=== PATIENT | female | born 1950 | race Caucasian/White ===

== ENCOUNTER 2017-08-26 13:00 | Emergency (ER) | payer MEDICARE, BC ==
[2017-08-26] MEDS ORDERED: Ibuprofen 400 MG Tab PO ONE (13:01)
--- NOTE | 2017-08-26 13:39 | EDM.PDOC ---
ED HPI GENERAL MEDICAL PROBLEM - General Chief Complaint: General Stated Complaint: RIGHT JAW SWELLING Time Seen by Provider: 08/26/17 13:20 Source of Information: Reports: Patient History Limitations: Reports: No Limitations - History of Present Illness INITIAL COMMENTS - FREE TEXT/NARRATIVE: 67 YO WF presents to ER complaining of right sided facial swelling and lower jaw /dental pain x 2 days. Pt reports she recently had 2 molars pulled on the upper right side of her jaw and had been recovering well until 2 days ago when she developed facial swelling and lower jaw pain. Pt denies any fever/chills, no difficulty swallowing, breathing or trismus. Duration: Day(s): Quality: Reports: Ache Severity: Moderate Improves with: Reports: None Worsens with: Reports: None Associated Symptoms: Reports: No Other Symptoms. Denies: Fever/Chills, Headaches, Nausea/Vomiting, Shortness of Breath Right Face Pain Score (Numeric/FACES): 8 - Related Data Allergies Allergy/AdvReac Type Severity Reaction Status Date / Time Sulfa (Sulfonamide Allergy Cannot Verified 08/26/17 13:24 Antibiotics) Remember Home Meds: Home Meds Hydrocodone/Acetaminophen [Hydrocodon-Acetaminophn 10-325] 1 each PO Q6H PRN # 10 tablet 08/26/17 [Rx] Ibuprofen [Motrin] 800 mg PO TID PRN #10 tablet 08/26/17 [Rx] Penicillin V Potassium [Veetids] 500 mg PO Q6H #40 tab 08/26/17 [Rx] Past Medical History - Past Surgical History Musculoskeletal Surgical History: Reports: Arthroscopic Knee, Other (See Below) Other Musculoskeletal Surgeries/Procedures:: Foot surgery Social & Family History - Tobacco Use Smoking Status *Q: Never Smoker - Caffeine Use Caffeine Use: Reports: Soda - Recreational Drug Use Recreational Drug Use: No ED ROS GENERAL - Review of Systems Review Of Systems: See Below Constitutional: Reports: No Symptoms HEENT: Reports: Dental Pain Respiratory: Reports: No Symptoms Cardiovascular: Reports: No Symptoms Endocrine: Reports: No Symptoms GI/Abdominal: Reports: No Symptoms : Reports: No Symptoms Musculoskeletal: Reports: No Symptoms Skin: Reports: No Symptoms Neurological: Reports: No Symptoms Psychiatric: Reports: No Symptoms Hematologic/Lymphatic: Reports: No Symptoms Immunologic: Reports: No Symptoms ED EXAM, GENERAL - Physical Exam Exam: See Below Exam Limited By: No Limitations General Appearance: Alert, WD/WN, No Apparent Distress Nose: Normal Inspection, Normal Mucosa, No Blood Throat/Mouth: Normal Inspection, Normal Lips, Normal Gums, Normal Oropharynx, Normal Voice, No Airway Compromise, Other (right lower jaw swelling without stridor, trismus or airway compromise). No: Normal Teeth, Dysphagia Head: Atraumatic, Normocephalic Neck: Normal Inspection, Supple, Non-Tender, Full Range of Motion Respiratory/Chest: No Respiratory Distress, Lungs Clear, Normal Breath Sounds, No Accessory Muscle Use, Chest Non-Tender Cardiovascular: Normal Peripheral Pulses, Regular Rate, Rhythm, No Edema, No Gallop, No JVD, No Murmur, No Rub GI/Abdominal: Normal Bowel Sounds, Soft, Non-Tender, No Organomegaly, No Distention, No Abnormal Bruit, No Mass Back Exam: Normal Inspection, Full Range of Motion, NT Extremities: Normal Inspection, Normal Range of Motion, Non-Tender, Normal Capillary Refill, No Pedal Edema Neurological: Alert, Oriented, CN II-XII Intact, Normal Cognition, Normal Gait, Normal Reflexes, No Motor/Sensory Deficits Psychiatric: Normal Affect, Normal Mood Skin Exam: Warm, Dry, Intact, Normal Color, No Rash Lymphatic: No Adenopathy Course - Vital Signs Last Recorded V/S: Last Vital Signs Temp 37.3 C 08/26/17 13:20 Pulse 83 08/26/17 13:20 Resp 16 08/26/17 13:20 BP 141/73 H 08/26/17 13:20 Pulse Ox 95 08/26/17 13:20 - Orders/Labs/Meds Meds: Medications Discontinued Medications Generic Name Dose Route Start Last Admin Trade Name Freq PRN Reason Stop Dose Admin Ketorolac Tromethamine 60 mg 08/26/17 13:53 Toradol IM 08/26/17 13:54 ONETIME ONE Penicillin G Procaine/Benzathine 1.2 millunits 08/26/17 13:53 Bicillin C-R 600/600 IM 08/26/17 13:54 ONETIME ONE Departure - Departure Time of Disposition: 14:03 Disposition: Home, Self-Care 01 Condition: Good Clinical Impression: Dental abscess - Discharge Information Prescriptions: Hydrocodone/Acetaminophen [Hydrocodon-Acetaminophn 10-325] 1 each PO Q6H PRN # 10 tablet PRN Reason: Pain Ibuprofen [Motrin] 800 mg PO TID PRN #10 tablet PRN Reason: Pain Penicillin V Potassium [Veetids] 500 mg PO Q6H #40 tab Instructions: Dental Abscess, [id number] Referrals: Saritha Servin PA-C [Primary Care Provider] - Forms: ED Department Discharge - Assessment/Plan Assessment:: 1. dental abscess of molar lower right side Plan: 1. pen vee K 500mg PO Q6 x 10 days 2. hydrocodone 10/325 #15 Q4-6 prn pain 3. motrin 800mg PO Q8 PRN [facility]. [facility] and [facility]
[2017-08-26] MEDS ORDERED: Ketorolac 60 MG/2 ML SDV IM ONE (13:53)
[2017-08-26] MEDS ORDERED: Penicillin G Benzathine/Procaine 600-600 1.2 Millunits/2 ML Syringe IM ONE (13:53)
[2017-08-26] MEDS ORDERED: PENICILLIN V POTASSIUM 125 MG/5 ML PO SCH (14:15)
[2017-08-26] MEDS ORDERED: Penicillin V Potassium 250 MG Tab PO SCH (14:15)
[2017-08-26] MEDS: Ibuprofen 600 MG Tab PO SCH ×2 (14:15→14:43)
[2017-08-26] MEDS: Penicillin V Potassium 250 MG Tab PO SCH ×2 (14:42→14:45)
[2017-08-26] MEDS: Acetaminophen/HYDROcodone 325-10 MG Tab PO PRN ×2 (14:42→14:45)
== END 2017-08-26 15:03 | disposition home or self-care (01) ==
LOC: KA.ED 13:00
DX: K04.7 Periapical abscess without sinus (principal); Z88.2 Allergy status to sulfonamides
CPT/HCPCS: 96372; 99282; 99283; A9270-GY; J0558; J1885

== ENCOUNTER 2018-03-20 11:38 | Emergency (ER) | payer MEDICARE, BC ==
--- NOTE | 2018-03-20 12:35 | EDM.PDOC ---
ED HPI GENERAL MEDICAL PROBLEM - General Chief Complaint: General Stated Complaint: FALL AT HOME Time Seen by Provider: 03/20/18 12:29 Source of Information: Reports: Patient History Limitations: Reports: No Limitations - History of Present Illness INITIAL COMMENTS - FREE TEXT/NARRATIVE: Patient is a 67-year-old female who presents to the emergency department this afternoon with a complaint of fall. Patient states that she was in her backyard tending to her clothes, and her feet got caught up in the weeds. She subsequently fell backwards and landed on her buttocks. The ground was dirt and grass. Patient was approximately 20 feet away from the house, and was able to scoot to the porch door. She was able to open the door and access her purse to call her neighbor. Neighbor decided to bring her to the emergency department. Patient denies dizziness, headache, vision changes, chest pain, shortness of breath, abdominal pain, nausea, vomiting, bowel changes, or any pain. Onset: Today Duration: Minutes: Location: Reports: Other (No pain) Quality: Reports: Other (None) Improves with: Reports: None Worsens with: Reports: None Context: Reports: Other (Fall) Associated Symptoms: Reports: No Other Symptoms. Denies: Chest Pain, Fever/ Chills, Headaches, Nausea/Vomiting, Shortness of Breath - Related Data Allergies Allergy/AdvReac Type Severity Reaction Status Date / Time Sulfa (Sulfonamide Allergy Cannot Verified 03/20/18 11:47 Antibiotics) Remember Home Meds: Home Meds Hydrocodone/Acetaminophen [Hydrocodon-Acetaminophn 10-325] 1 each PO Q6H PRN # 10 tablet 08/26/17 [Rx] Ibuprofen [Motrin] 800 mg PO TID PRN #10 tablet 08/26/17 [Rx] Penicillin V Potassium [Veetids] 500 mg PO Q6H #40 tab 08/26/17 [Rx] Past Medical History Cardiovascular History: Reports: High Cholesterol Respiratory History: Reports: COPD Gastrointestinal History: Reports: GERD Genitourinary History: Reports: None 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: Musculoskeletal History: Reports: Other (See Below) Other Musculoskeletal History: restless leg Neurological History: Reports: None Psychiatric History: Reports: None Endocrine/Metabolic History: Reports: Hypothyroidism, Obesity/BMI 30+ Hematologic History: Reports: None - Past Surgical History HEENT Surgical History: Reports: Detached Retina, LASIK Cardiovascular Surgical History: Reports: None Respiratory Surgical History: Reports: None GI Surgical History: Reports: Other (See Below) Other GI Surgeries/Procedures: stretch esophagus Female Surgical History: Reports: Breast Biopsy Endocrine Surgical History: Reports: None Neurological Surgical History: Reports: None Musculoskeletal Surgical History: Reports: Arthroscopic Knee, Knee Replacement, Other (See Below) Other Musculoskeletal Surgeries/Procedures:: Foot surgery Social & Family History - Tobacco Use Smoking Status *Q: Never Smoker Second Hand Smoke Exposure: Yes - Caffeine Use Caffeine Use: Reports: Soda - Recreational Drug Use Recreational Drug Use: No ED ROS GENERAL - Review of Systems Review Of Systems: ROS reveals no pertinent complaints other than HPI. Constitutional: Reports: No Symptoms HEENT: Reports: No Symptoms Respiratory: Reports: No Symptoms Cardiovascular: Reports: No Symptoms Endocrine: Reports: No Symptoms GI/Abdominal: Reports: No Symptoms : Reports: No Symptoms Musculoskeletal: Reports: No Symptoms Skin: Reports: Other (Abrasion to bilateral elbows) Neurological: Reports: No Symptoms Psychiatric: Reports: No Symptoms Hematologic/Lymphatic: Reports: No Symptoms Immunologic: Reports: No Symptoms ED EXAM, GENERAL - Physical Exam Exam: See Below Exam Limited By: No Limitations General Appearance: Alert, WD/WN, No Apparent Distress Eye Exam: Bilateral Eye: Normal Inspection Nose: Normal Inspection, No Blood Throat/Mouth: Normal Inspection, Normal Oropharynx, No Airway Compromise Head: Atraumatic, Normocephalic Neck: Normal Inspection, Supple, Non-Tender, Full Range of Motion Respiratory/Chest: No Respiratory Distress, Lungs Clear, Normal Breath Sounds, No Accessory Muscle Use, Chest Non-Tender Cardiovascular: Regular Rate, Rhythm, No Murmur GI/Abdominal: Normal Bowel Sounds, Soft, Non-Tender Back Exam: Normal Inspection Extremities: Normal Inspection, Other (Mild abrasion to bilateral posterior elbows) Psychiatric: Normal Affect, Normal Mood Skin Exam: Warm, Dry, Normal Color, No Rash, Other (Abrasions as above) Course - Vital Signs Last Recorded V/S: Last Vital Signs Temp 98.9 F 03/20/18 11:42 Pulse 82 03/20/18 11:42 Resp 20 03/20/18 11:42 BP 122/76 03/20/18 11:42 Pulse Ox 98 03/20/18 11:42 - Re-Assessments/Exams Free Text/Narrative Re-Assessment/Exam: 03/20/18 12:36 Patient afebrile, nontoxic appearing, vital signs stable, family at bedside. Patient will be discharged home with falls in elderly instructions on how to rise from a fallen position. Departure - Departure Time of Disposition: 12:36 Disposition: Home, Self-Care 01 Condition: Good Clinical Impression: Abrasion forearm Qualifiers: Encounter type: initial encounter Laterality: unspecified laterality Qualified Code(s): S50.819A - Abrasion of unspecified forearm, initial encounter - Discharge Information Instructions: Abrasion, [id number], Fall Prevention in the Home, [id number] Referrals: Saritha Servin PA-C [Primary Care Provider] - Additional Instructions: Follow-up at clinic in next 2-3 days. Return to the emergency department sooner if symptoms continue or worsen. - Assessment/Plan Assessment:: Fall Plan: Follow-up with PCP
== END 2018-03-20 12:50 | disposition home or self-care (01) ==
LOC: KA.ED 11:38
DX: S50.312A Abrasion of left elbow, initial encounter (principal); S50.311A Abrasion of right elbow, initial encounter; Z88.2 Allergy status to sulfonamides; W19.XXXA Unspecified fall, initial encounter; Y92.009 Unspecified place in unspecified non-institutional (private) residence as the place of occurrence of the external cause
CPT/HCPCS: 99283

== ENCOUNTER 2021-05-21 14:21 | Emergency (ER) | payer MEDICARE, BC ==
[2021-05-21 15:29] LABS: ANION GAP 14.3 mmol/L (5-15); CHLORIDE,CL 105 mmol/L (98-107); SODIUM,NA 142 mmol/L (136-145)
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
--- NOTE | 2021-05-21 16:11 | CR ---
[id number] RAD/RAD Abdomen Upright EXAM: RAD Abdomen Upright INDICATION: LEFT UPPER QUADRANT PAIN 2 WEEKS. COMPARISON: None. DISCUSSION: Unobstructed bowel gas pattern. No radiographically evident pneumoperitoneum. Moderate amount of retained stool within the colon. IMPRESSION: Moderate amount of retained stool within the colon. Correlate for constipation Anshu Elam DO 05/21/21 1611 Thank you for allowing us to participate in the care of your patient.
[2021-05-21] MEDS ORDERED: Magnesium Citrate Solution 296 ML Bottle PO ONE (17:07)
[2021-05-21] MEDS ORDERED: Iopamidol 755 Mg/ML 75 ML Bottle IVPUSH ONE (17:07)
[2021-05-21] MEDS ORDERED: cefTRIAXone 1 GM Vial IVPUSH ONE (17:10)
[2021-05-21] MEDS ORDERED: Sodium Chloride 0.9% 50 ML IV SCH (17:15)
[2021-05-21] MEDS ORDERED: Sodium Chloride 0.9% 500 ML IV SCH (17:15)
--- NOTE | 2021-05-21 17:18 | CT ---
[id number] CT/CT Abdomen Pelvis W IV EXAM: CT Abdomen Pelvis W IV CLINICAL DATA: LEFT UPPER QUADRANT PAIN. COMPARISON STUDY: None. FINDINGS: Dependent atelectasis at the lung bases bilaterally. Coronary artery disease. The liver, spleen, pancreas, adrenal glands and kidneys are unremarkable. No bowel obstruction or inflammation. Moderate amount of retained stool within the colon. No lymphadenopathy, free fluid, or pneumoperitoneum. Atherosclerotic calcifications of the aorta and its branches. Scattered changes of spondylosis the spine. No fracture or osseous lesion. IMPRESSION: Moderate amount of retained stool within the colon. Correlate for constipation. Anshu Elam DO 05/21/21 [id number] Thank you for allowing us to participate in the care of your patient.
[2021-05-21] MEDS ORDERED: Ondansetron 4 MG/2 ML SDV IVPUSH ONE (17:31)
== END 2021-05-21 18:30 | disposition home or self-care (01) ==
LOC: KA.ED 14:21
DX: K59.01 Slow transit constipation (principal); N30.01 Acute cystitis with hematuria; G30.0 Alzheimer's disease with early onset; F02.80 Dementia in other diseases classified elsewhere, unspecified severity, without behavioral disturbance, psychotic disturbance, mood disturbance, and anxiety; E78.00 Pure hypercholesterolemia, unspecified; J44.9 Chronic obstructive pulmonary disease, unspecified; K21.9 Gastro-esophageal reflux disease without esophagitis; E03.9 Hypothyroidism, unspecified; R00.0 Tachycardia, unspecified; R94.31 Abnormal electrocardiogram [ECG] [EKG]; Z88.2 Allergy status to sulfonamides; Z79.899 Other long term (current) drug therapy
CPT/HCPCS: 36415; 74018; 74177; 80048; 81001; 84484; 85025; 87086; 87088; 87186; 93005; 93010; 96374; 96375; 99284; 99284-25; A9270-GY; J0696; J2405; J7040; Q9967

== ENCOUNTER 2021-12-27 15:38 | Emergency (ER) | payer MEDICARE, BC ==
[2021-12-27] MEDS ORDERED: HYDROmorphone 1 MG/ML Syringe IVPUSH ONE ×2 (15:45→17:22)
[2021-12-27 16:11] LABS: ANION GAP 13.9 mmol/L (5-15); CHLORIDE,CL 108 mmol/L (98-107); SODIUM,NA 141 mmol/L (136-145)
[2021-12-27 16:13] LABS: ESTIMATED GFR > 60 mL/min
[2021-12-27] MEDS ORDERED: Ondansetron 4 MG/2 ML SDV IVPUSH ONE (17:22)
== END 2021-12-27 20:15 ==
LOC: KA.ED 15:38
DX: S72.321A Displaced transverse fracture of shaft of right femur, initial encounter for closed fracture (principal); J44.9 Chronic obstructive pulmonary disease, unspecified; E03.9 Hypothyroidism, unspecified; E78.00 Pure hypercholesterolemia, unspecified; Z90.710 Acquired absence of both cervix and uterus; Z79.899 Other long term (current) drug therapy; Z88.2 Allergy status to sulfonamides; W19.XXXA Unspecified fall, initial encounter
CPT/HCPCS: 36415; 73560-RT; 80053; 85025; 96374; 96375; 96376; 99284; 99285-25; J1170; J2405

== ENCOUNTER 2022-01-30 13:30 | Emergency (ER) | payer MEDICARE, BC | END 2022-01-30 15:00 | LOC: KA.ED 13:30 | DX: M25.561 Pain in right knee (principal); J44.9 Chronic obstructive pulmonary disease, unspecified; E78.00 Pure hypercholesterolemia, unspecified; E03.9 Hypothyroidism, unspecified; Z88.2 Allergy status to sulfonamides; Z79.899 Other long term (current) drug therapy; Z90.710 Acquired absence of both cervix and uterus | CPT/HCPCS: 73562-RT; 99283 ==

== ENCOUNTER 2024-03-23 16:08 | Emergency (ER) | payer MEDICARE, BC ==
[2024-03-23] MEDS ORDERED: Sodium Chloride 0.9% 10 ML Syringe FLUSH PRN (16:25)
[2024-03-23 16:33] LABS: BASOPHILS ABSOLUTE AUTO 0.03 10^3/uL (0.00-0.10); BASOPHILS PERCENT AUTO 0.5 % (0.0-1.0); EOSINOPHILS ABSOLUTE AUTO 0.28 10^3/uL (0.10-0.30); EOSINOPHILS PERCENT AUTO 4.6 % (1.0-3.0); HEMATOCRIT 42.8 % (37.0-47.0); HEMOGLOBIN 13.9 g/dL (12.0-16.0); IMMATURE GRAN ABSOLUTE AUTO 0.01 10^3/uL (0.00-0.50); IMMATURE GRAN PERCENT AUTO 0.2 % (0.0-5.0); LYMPHOCYTES ABSOLUTE AUTO 1.81 10^3/uL (1.00-4.00); MEAN CORPUSCULAR HEMOGLOBIN 29.7 pg (27.0-31.0); MEAN CORPUSCULAR HGB CONC 32.5 g/dL (32.0-36.0); MEAN CORPUSCULAR VOLUME 91.5 fL (82.0-92.0); MEAN PLATELET VOLUME 10.4 fL (7.4-10.4); MONOCYTES ABSOLUTE AUTO 0.58 10^3/uL (0.10-0.80); MONOCYTES PERCENT AUTO 9.6 % (2.0-8.0); NEUTROPHILS ABSOLUTE AUTO 3.33 10^3/uL (2.50-7.00); NEUTROPHILS PERCENT AUTO 55.1 % (50.0-70.0); PLATELET COUNT,PLT 153 10^3/uL (150-400); RED BLOOD CELL COUNT 4.68 10^6/uL (3.80-5.50); RED CELL DISTRIBUTION WIDTH 13.2 % (11.5-14.5); WHITE BLOOD CELL COUNT,WBC 6.04 10^3/uL (5.00-10.00)
[2024-03-23 16:44] LABS: ALANINE AMINOTRANSFERASE,ALT 29 U/L (14-63); ALBUMIN 2.96 g/dL (3.40-5.00); ALKALINE PHOSPHATASE 82 U/L (46-116); ANION GAP 14.4 mmol/L (5-15); ASPARTATE AMNIOTRANSFERASE,AST 19 U/L (15-37); BILIRUBIN TOTAL 0.4 mg/dL (0.2-1.0); BLOOD UREA NITROGEN,BUN 10 mg/dL (7-18); CALCIUM 8.3 mg/dL (8.7-10.3); CARBON DIOXIDE,CO2 27.7 mmol/L (21.0-32.0); CHLORIDE,CL 106 mmol/L (98-107); CREATININE 0.87 mg/dL (0.51-1.17); ESTIMATED GFR 70 mL/min (>=60); GLUCOSE RANDOM 107 mg/dL (70-140); POTASSIUM,K 4.1 mmol/L (3.5-5.1); PROTEIN TOTAL,TP 6.1 g/dL (6.4-8.2); SODIUM,NA 144 mmol/L (136-145)
[2024-03-23 16:48] LABS: PROTHROMBIN TIME 10.2 SEC (9.3-12.2)
== END 2024-03-23 18:50 ==
LOC: KA.ED 16:08
DX: G45.9 Transient cerebral ischemic attack, unspecified (principal); E78.00 Pure hypercholesterolemia, unspecified; J44.9 Chronic obstructive pulmonary disease, unspecified; M19.90 Unspecified osteoarthritis, unspecified site; E03.9 Hypothyroidism, unspecified; Z79.899 Other long term (current) drug therapy; Z79.82 Long term (current) use of aspirin; Z79.890 Hormone replacement therapy; Z79.2 Long term (current) use of antibiotics; Z88.2 Allergy status to sulfonamides
CPT/HCPCS: 70450; 71045; 80053; 84484; 85025; 85610; 85730; 99285; Q3014; 36415; 93005; 93010; 99284

== ENCOUNTER 2025-03-25 07:53 | Day surgery (SDC) | payer OTHER ==
[2025-03-25] MEDS ORDERED: Sodium Chloride 0.9% 10 ML Syringe FLUSH PRN (08:00)
[2025-03-25] MEDS: Lactated Ringers 1,000 ML IV SCH (08:14)
[2025-03-25] MEDS ORDERED: Midazolam 1 MG/ML 2 ML SDV ONE (09:01)
[2025-03-25] MEDS ORDERED: Propofol 200 MG/20 ML SDV ONE (09:02)
[2025-03-25 11:26] VITALS: BP 116/59; PULSE 77
== END 2025-03-25 11:02 | disposition home or self-care (01) ==
LOC: KA.SDS 07:53
PROVIDERS: ATTEND Surgery
DX: K22.2 Esophageal obstruction (principal); K21.9 Gastro-esophageal reflux disease without esophagitis; Z88.2 Allergy status to sulfonamides; Z86.16 Personal history of COVID-19; Z79.899 Other long term (current) drug therapy; Z79.82 Long term (current) use of aspirin; Z79.890 Hormone replacement therapy
CPT/HCPCS: J1596; J2250; J2704; J7120

== ENCOUNTER 2025-04-13 16:47 | Observation (INO) | payer MEDICARE, OTHER ==
[~2025-04-13 16:47] MED LIST: Sodium Chloride 0.9% 10 ML Syringe FLUSH PRN
[2025-04-13 17:03] LABS: BASOPHILS ABSOLUTE AUTO 0.04 10^3/uL (0.00-0.10); BASOPHILS PERCENT AUTO 0.4 % (0.0-1.0); EOSINOPHILS ABSOLUTE AUTO 0.48 10^3/uL (0.10-0.30); EOSINOPHILS PERCENT AUTO 4.6 % (1.0-3.0); IMMATURE GRAN ABSOLUTE AUTO 0.04 10^3/uL (0.00-0.04); IMMATURE GRAN PERCENT AUTO 0.4 % (0.0-0.4); LYMPHOCYTES ABSOLUTE AUTO 2.42 10^3/uL (1.00-4.00); LYMPHOCYTES PERCENT AUTO 23.3 % (20.0-40.0); MEAN PLATELET VOLUME 10.1 fL (7.4-10.4); MONOCYTES ABSOLUTE AUTO 0.97 10^3/uL (0.10-0.80); MONOCYTES PERCENT AUTO 9.3 % (2.0-8.0); NEUTROPHILS ABSOLUTE AUTO 6.43 10^3/uL (2.50-7.00); NEUTROPHILS PERCENT AUTO 62.0 % (50.0-70.0); PLATELET COUNT,PLT 191 10^3/uL (150-400); RED BLOOD CELL COUNT 5.17 10^6/uL (3.80-5.50); RED CELL DISTRIBUTION WIDTH 14.1 % (11.5-14.5); WHITE BLOOD CELL COUNT,WBC 10.38 10^3/uL (5.00-10.00)
[2025-04-13 17:20] LABS: ALANINE AMINOTRANSFERASE,ALT 33 U/L (14-63); ASPARTATE AMNIOTRANSFERASE,AST 18 U/L (15-37); BILIRUBIN TOTAL 0.5 mg/dL (0.2-1.0); BLOOD UREA NITROGEN,BUN 13 mg/dL (7-18); CARBON DIOXIDE,CO2 30.2 mmol/L (21.0-32.0); CHLORIDE,CL 103 mmol/L (98-107); CREATININE 0.96 mg/dL (0.51-1.17); ESTIMATED GFR 62 mL/min (>=60); GLUCOSE RANDOM 103 mg/dL (70-140); POTASSIUM,K 4.3 mmol/L (3.5-5.1); PROTEIN TOTAL,TP 7.1 g/dL (6.4-8.2); SODIUM,NA 142 mmol/L (136-145)
[2025-04-13 17:28] LABS: INR 1.0 (0.9-1.1); PTT,PARTIAL THROMBOPLSTIN TIME 25.5 SEC (21.6-32.4)
[2025-04-13] MEDS ORDERED: Sennosides/Docusate Sodium 50-8.6 MG Tab PO PRN (21:15)
[2025-04-13] MEDS ORDERED: DEXTROMETHORPHAN HBR PO PRN (21:15)
[2025-04-13] MEDS ORDERED: LIDOCAINE HCL TOP PRN (21:15)
[2025-04-13] MEDS: Amoxicillin/Clavulanate K 875-125 MG Tab PO SCH (22:31)
[2025-04-14] MEDS: Omeprazole 20 MG Cap.CR PO SCH (06:16)
[2025-04-14 07:20] LABS: BASOPHILS ABSOLUTE AUTO 0.05 10^3/uL (0.00-0.10); BASOPHILS PERCENT AUTO 0.6 % (0.0-1.0); EOSINOPHILS ABSOLUTE AUTO 0.45 10^3/uL (0.10-0.30); EOSINOPHILS PERCENT AUTO 5.4 % (1.0-3.0); IMMATURE GRAN ABSOLUTE AUTO 0.04 10^3/uL (0.00-0.04); IMMATURE GRAN PERCENT AUTO 0.5 % (0.0-0.4); LYMPHOCYTES ABSOLUTE AUTO 1.96 10^3/uL (1.00-4.00); LYMPHOCYTES PERCENT AUTO 23.4 % (20.0-40.0); MEAN PLATELET VOLUME 10.0 fL (7.4-10.4); MONOCYTES ABSOLUTE AUTO 0.78 10^3/uL (0.10-0.80); MONOCYTES PERCENT AUTO 9.3 % (2.0-8.0); NEUTROPHILS ABSOLUTE AUTO 5.09 10^3/uL (2.50-7.00); NEUTROPHILS PERCENT AUTO 60.8 % (50.0-70.0); PLATELET COUNT,PLT 167 10^3/uL (150-400); RED BLOOD CELL COUNT 4.82 10^6/uL (3.80-5.50); RED CELL DISTRIBUTION WIDTH 14.1 % (11.5-14.5); WHITE BLOOD CELL COUNT,WBC 8.37 10^3/uL (5.00-10.00)
[2025-04-14 07:36] LABS: BLOOD UREA NITROGEN,BUN 12.0 mg/dL (7-18); CARBON DIOXIDE,CO2 27.8 mmol/L (21.0-32.0); CHLORIDE,CL 104.0 mmol/L (98-107); CREATININE 0.88 mg/dL (0.51-1.17); EST CRCL DRUG DOSING (CG) 51.71 mL/min; GLUCOSE RANDOM 109.0 mg/dL (70-140); POTASSIUM,K 4.1 mmol/L (3.5-5.1); SODIUM,NA 141.0 mmol/L (136-145)
[2025-04-14 07:37] LABS: ESTIMATED GFR 68.0 mL/min (>=60)
[2025-04-14] MEDS: Multivitamins with Minerals/Iron/Folic Acid/Lycopene Tab PO SCH (08:47)
[2025-04-14] MEDS: Cholecalciferol (Vitamin D3) 25 MCG Tab PO SCH (08:47)
[2025-04-14] MEDS: Saliva Substitute Oral Spray 120 ML Bottle MUCMEM SCH (08:48)
[2025-04-14] MEDS: Heparin Sodium 5,000 Units/ML Vial SUBCUT SCH (08:49)
[2025-04-14] MEDS ORDERED: MEMANTINE HCL 28 MG PO SCH (09:00)
[2025-04-14] MEDS ORDERED: Non-Formulary Medication 1 Each (Bupropion [Wellbutrin] 100 MG Tablet) PO SCH (09:00)
== END 2025-04-14 11:00 ==
LOC: KA.ED 16:47 → KA.MS 18:05
PROVIDERS: ADMIT Internal Medicine; ATTEND Internal Medicine
DX: R41.89 Other symptoms and signs involving cognitive functions and awareness (principal); F03.90 Unspecified dementia, unspecified severity, without behavioral disturbance, psychotic disturbance, mood disturbance, and anxiety; K21.9 Gastro-esophageal reflux disease without esophagitis; E03.9 Hypothyroidism, unspecified; F32.A Depression, unspecified; F41.9 Anxiety disorder, unspecified; Z88.2 Allergy status to sulfonamides; Z79.890 Hormone replacement therapy; Z79.899 Other long term (current) drug therapy
CPT/HCPCS: 36415; 70450; 71045; 80048; 80053; 82947; 84484; 85025; 85610; 85730; 93010; 99223-GT; 99238-GT; 99284; 99285; A9270-GY; J1644; Q3014